=== PATIENT | female | born 1960 | race Caucasian/White ===

== ENCOUNTER → 2020-01-10 | Outpatient (CLI) | payer OTHER | LOC: M.ULTRA 09:13 | DX: I10 Essential (primary) hypertension (principal) ==

== ENCOUNTER → 2020-01-22 | Outpatient (CLI) | payer OTHER ==
--- NOTE | 2020-02-04 07:23 | SLEEP ---
[address] [address] SLEEP STUDY REPORT Name: MILADABDIRIZAK Chana Room: [facility]#: [id number] Admission: 01/22/20 Attend Phys: Roberth Ferraro DO Discharge: Date of : 56 Report #: [id number] THIS REPORT FOR: //name// CC: Roberth Ferraro DO This study has been reviewed in its entirety by a board certified sleep specialist DATE OF SERVICE: 01/22/2020 HOME SLEEP STUDY REFERRING PHYSICIAN: Roberth Ferraro DO. The patient is a 59-year-old who weighs 200 pounds with a BMI of 36.6. The patient's [place] score was 11. The patient underwent home sleep study performed by [facility]. Total recording time was 386 minutes. During the night study, the patient had 19 obstructive apneas, no central or mixed apneas and 37 hypopneas. The patient's AHI was 9 per hour. Supine AHI was 19 per hour. Nocturnal oximetry study revealed an average oxygen saturation of 89% with lowest of 81%. 273 minutes were spent in oxygen saturation less than 90%. Mean heart rate of 69 beats per minute. IMPRESSION: 1. Mild obstructive sleep apnea at an AHI of 9 per hour with moderate increase in sleep apnea during supine sleep with an AHI of 19 per hour. 2. Sustained pattern of nocturnal hypoxia, suspect combination of hypoventilation and sleep apnea. RECOMMENDATIONS: 1. The patient is clinically symptomatic with an [place] score of 11. The patient would benefit from treatment of sleep apnea, not only to improve symptoms, but also to improve nocturnal hypoxia. Treatment can be initiated with CPAP versus oral appliance. 2. Weight loss is strongly advised. 3. Avoid [employer] depressants. 4. Cautioned regarding driving until symptoms of sleep apnea resolves with [place] [address] SLEEP STUDY REPORT Name: STINSONABDIRIZAK Room: [facility]#: [id number] Admission: 01/22/20 Attend Phys: Roberth Ferraro DO Discharge: Date of : 56 Report #: [id number] 5. The patient should have a followup after treatment to assess compliance and to document efficacy of treatment. <ELECTRONICALLY SIGNED> By: Walter Conway MD 02/04/20 0723 1703 1916Ajacquelyn Conway MD /nt
== END ==
LOC: M.SLEEPLAB 15:45
PROVIDERS: ATTEND Family Medicine
DX: G47.33 Obstructive sleep apnea (adult) (pediatric) (principal); I10 Essential (primary) hypertension; J43.9 Emphysema, unspecified